=== PATIENT | female | born 1955 | race Caucasian/White ===

== ENCOUNTER 2019-08-03 13:46 | Emergency (ER) | payer MEDICARE ==
[~2019-08-03] VITALS: Ht 170.2 cm; Wt 71.9 kg
[2019-08-03 14:45] LABS: BASOPHILS % (AUTO) 0.2 % (0-1); EOSINOPHILS % (AUTO) 0.1 % (0-6); HEMATOCRIT 41.7 % (35.0-45.0); HEMOGLOBIN 14.2 g/dl (12.0-16.0); LYMPHOCYTES # (AUTO) 0.8 X10'3 (1.1-4.8); LYMPHOCYTES % (AUTO) 5.4 % (21-51); MEAN CORPUSCULAR HEMOGLOBIN 31.6 PG (27.0-31.0); MEAN CORPUSCULAR HGB CONC 34.1 g/dL (33.0-36.5); MEAN CORPUSCULAR VOLUME 92.7 FL (78-98); MEAN PLATELET VOLUME 6.4 FL (7.4-10.4); MONOCYTES # (AUTO) 0.6 X10'3 (0-0.9); MONOCYTES % (AUTO) 3.8 % (2-12); NEUTROPHILS # (AUTO) 13.8 X10'3 (1.8-7.7); NEUTROPHILS % (AUTO) 90.5 % (42-75); PLATELET COUNT 321 X10'3 (140-440); RED CELL DISTRIBUTION WIDTH 12.8 % (11.5-14.5); WHITE BLOOD COUNT 15.2 X10'3 (4.5-11.0)
[2019-08-03 15:20] LABS: ALANINE AMINOTRANSFERASE 181 U/L (12-78); ALBUMIN 4.1 G/DL (3.4-5.0); ALBUMIN/GLOBULIN RATIO 0.9 (1.1-1.5); ALKALINE PHOSPHATASE 157 IU/L (46-116); ANION GAP 12 (8-16); ASPARTATE AMINO TRANSFERASE 102 U/L (10-37); BILIRUBIN,TOTAL 0.4 MG/DL (0.1-1.0); BLOOD UREA NITROGEN 13 MG/DL (7-18); BUN/CREATININE RATIO 17.3 (6.6-38.0); CALCIUM 9.5 MG/DL (8.5-10.1); CHLORIDE 97 MMOL/L (99-107); CREATININE 0.75 MG/DL (0.40-0.90); GLUCOSE 122 MG/DL (70-104); SODIUM 133 MMOL/L (135-145); TOTAL CARBON DIOXIDE 24.2 MMOL/L (24-32); TOTAL PROTEIN 8.6 G/DL (6.4-8.2); eGFR 77 ML/MIN
--- NOTE | 2019-08-03 16:47 | NUR ---
Patient had large BM, DEMETRIA Badillo made aware, patient to CT via wheelchair.
--- NOTE | 2019-08-03 16:50 | NUR ---
PT HAD LARGE WELL FORMED STOOL. PT STATES, I FEEL SO MUCH BETTER. TO CT VIA WHEELCHAIR IN STABLE CONDITION.
[2019-08-03 17:36] VITALS: BP 190/105
== END 2019-08-03 17:39 | disposition home or self-care (01) ==
LOC: ER 13:47
DX: K59.03 Drug induced constipation (principal); M54.5 Low back pain; R10.30 Lower abdominal pain, unspecified; Z98.890 Other specified postprocedural states
CPT/HCPCS: 36415; 71045; 74176; 80053; 84484; 85025; 93005; 99284

== ENCOUNTER 2022-11-23 13:36 | Observation (INO) | payer MEDICARE ==
[~2022-11-23] VITALS: Ht 170.2 cm; Wt 76.8 kg
[2022-11-23 13:57] LABS: BASOPHILS # (AUTO) 0.1 X10'3 (0-0.2); EOSINOPHILS # (AUTO) 0.2 X10'3 (0-0.9); EOSINOPHILS % (AUTO) 2.2 % (0-6); HEMATOCRIT 41.6 % (35.0-45.0); LYMPHOCYTES # (AUTO) 2.2 X10'3 (1.1-4.8); LYMPHOCYTES % (AUTO) 23.6 % (21-51); MEAN CORPUSCULAR HEMOGLOBIN 30.4 PG (27.0-31.0); MEAN CORPUSCULAR HGB CONC 33.7 g/dL (33.0-36.5); MEAN PLATELET VOLUME 6.5 FL (7.4-10.4); MONOCYTES # (AUTO) 0.5 X10'3 (0-0.9); MONOCYTES % (AUTO) 5.7 % (2-12); NEUTROPHILS # (AUTO) 6.4 X10'3 (1.8-7.7); NEUTROPHILS % (AUTO) 67.5 % (42-75); PLATELET COUNT 304 X10'3 (140-440); RED BLOOD COUNT 4.61 X10'6 (4.20-5.60); RED CELL DISTRIBUTION WIDTH 13.3 % (11.5-14.5); WHITE BLOOD COUNT 9.4 X10'3 (4.5-11.0)
[2022-11-23 14:20] LABS: ALANINE AMINOTRANSFERASE 38 U/L (12-78); ALBUMIN 4.1 G/DL (3.4-5.0); ALBUMIN/GLOBULIN RATIO 1.1 (1.1-1.5); ALKALINE PHOSPHATASE 79 IU/L (46-116); ANION GAP 10 (8-16); ASPARTATE AMINO TRANSFERASE 29 U/L (10-37); BILIRUBIN,TOTAL 0.3 MG/DL (0.1-1.0); BLOOD UREA NITROGEN 12 MG/DL (7-18); BUN/CREATININE RATIO 14.5 (6.6-38.0); CALCIUM 9.6 MG/DL (8.5-10.1); CHLORIDE 103 MMOL/L (99-107); CREATININE 0.83 MG/DL (0.40-0.90); GLUCOSE 115 MG/DL (70-104); POTASSIUM 3.8 MMOL/L (3.5-5.1); SODIUM 137 MMOL/L (135-145); TOTAL CARBON DIOXIDE 23.7 MMOL/L (24-32); TOTAL PROTEIN 7.7 G/DL (6.4-8.2); eGFR 68 ML/MIN
[2022-11-23] MEDS ORDERED: DOXYCYCLINE 100MG CAPSULE PO STA (15:34)
[2022-11-23] MEDS ORDERED: DOXYCYCLINE 100MG CAPSULE PO ONE (15:44)
[2022-11-23] MEDS ORDERED: ondansetron 4mg rapidly disintigrating tab PO PRN (16:55)
[2022-11-23] MEDS ORDERED: potassium Cl 40MEQ/1/2NS 520ml 520 ML IV PRN (16:55)
[2022-11-23] MEDS ORDERED: HYDROcodone/acetaminophen 10/325mg tab PO PRN (16:55)
[2022-11-23] MEDS ORDERED: ondansetron/PF 4mg/2ml inj IV PRN (16:55)
[2022-11-23] MEDS ORDERED: potassium Cl 20 mEq SR tablet PO PRN ×2 (16:55)
[2022-11-23] MEDS ORDERED: regadenoson 0.4mg/5ml syringe IV PRN (16:55)
[2022-11-23] MEDS ORDERED: morphine 2 MG/ML inj. syringe IV PRN ×2 (16:55)
[2022-11-23] MEDS ORDERED: mag hydrox/Alum hydrox/simeth 30ml oral suspension PO PRN (16:55)
[2022-11-23] MEDS ORDERED: magnesium hydroxide 30ml (MOM) UD suspension PO PRN (16:55)
[2022-11-23] MEDS ORDERED: magnesium 4gm in 100ml NS 100 ML IV PRN (16:55)
[2022-11-23] MEDS ORDERED: nitroGLYCERIN 0.4mg SUBLingual tab SL PRN ×2 (16:55)
[2022-11-23] MEDS ORDERED: aminophylline 250mg/10ml inj. IV PRN (16:55)
[2022-11-23] MEDS ORDERED: metoprolol tartrate 1mg/ml inj IV PRN (16:55)
[2022-11-23] MEDS ORDERED: magnesium Cl slow-release 64mg tablet PO PRN (16:55)
[2022-11-23] MEDS ORDERED: PERFLUTREN PROTEIN-A MICROSPHR (Optison) 0.22 MG/ML 3ML VIAL IV ONE (16:55)
[2022-11-23] MEDS ORDERED: HYDROcodone/acetaminophen 5mg/325mg tablet PO PRN (16:55)
[2022-11-23] MEDS ORDERED: acetaminophen 325mg tablet PO PRN (16:55)
[2022-11-23] MEDS ORDERED: IBAN150T21 PO (17:29)
[2022-11-23] MEDS ORDERED: PRAV80TA3 PO (17:29)
[2022-11-23] MEDS ORDERED: OMEP20CA16 PO (17:29)
[2022-11-23] MEDS ORDERED: SERT-433 PO (17:29)
[2022-11-23] MEDS ORDERED: CHOL400T57 PO (17:29)
[2022-11-23] MEDS ORDERED: pantoprazole 40mg Tablet.DR PO PRN (17:55)
[2022-11-23 17:57] LABS: MAGNESIUM 2.1 MG/DL (1.5-2.4)
[2022-11-23 18:08] LABS: H PYLORI ANTIBODY POSITIVE (Neg)
--- NOTE | 2022-11-23 18:38 | NUR ---
Pt endorsed to Juhi SANTOS.
[2022-11-23] MEDS: K and/or MAG REPLACEMENT MC SCH (20:00)
[2022-11-23] MEDS ORDERED: temazepam 15mg capsule PO PRN (21:00)
[2022-11-23] MEDS: pravastatin 40mg tablet PO SCH (23:01)
[2022-11-24 05:59] LABS: BASOPHILS # (AUTO) 0.1 X10'3 (0-0.2); EOSINOPHILS # (AUTO) 0.2 X10'3 (0-0.9); HEMATOCRIT 38.9 % (35.0-45.0); HEMOGLOBIN 13.2 g/dl (12.0-16.0); LYMPHOCYTES % (AUTO) 29.5 % (21-51); MEAN CORPUSCULAR HEMOGLOBIN 30.4 PG (27.0-31.0); MEAN CORPUSCULAR HGB CONC 33.8 g/dL (33.0-36.5); MEAN CORPUSCULAR VOLUME 89.7 FL (78-98); MEAN PLATELET VOLUME 6.9 FL (7.4-10.4); MONOCYTES # (AUTO) 0.6 X10'3 (0-0.9); MONOCYTES % (AUTO) 8.4 % (2-12); NEUTROPHILS # (AUTO) 3.9 X10'3 (1.8-7.7); NEUTROPHILS % (AUTO) 58.1 % (42-75); PLATELET COUNT 245 X10'3 (140-440); RED BLOOD COUNT 4.33 X10'6 (4.20-5.60); RED CELL DISTRIBUTION WIDTH 13.4 % (11.5-14.5); WHITE BLOOD COUNT 6.8 X10'3 (4.5-11.0)
[2022-11-24 06:00] VITALS: BP 145/85
[2022-11-24 06:27] LABS: ALBUMIN 3.6 G/DL (3.4-5.0); ANION GAP 7 (8-16); BLOOD UREA NITROGEN 13 MG/DL (7-18); BUN/CREATININE RATIO 15.7 (6.6-38.0); CALCIUM 9.2 MG/DL (8.5-10.1); CHLORIDE 105 MMOL/L (99-107); CREATININE 0.83 MG/DL (0.40-0.90); GLUCOSE 95 MG/DL (70-104); MAGNESIUM 2.2 MG/DL (1.5-2.4); POTASSIUM 3.9 MMOL/L (3.5-5.1); SODIUM 138 MMOL/L (135-145); TOTAL CARBON DIOXIDE 26.3 MMOL/L (24-32); eGFR 68 ML/MIN
[2022-11-24] MEDS: K and/or MAG REPLACEMENT MC SCH ×2 (08:00→20:00)
[2022-11-24] MEDS: aspirin 81mg tab.chew PO SCH (08:11)
[2022-11-24] MEDS: sertraline 50mg tablet PO SCH (08:11)
[2022-11-24] MEDS: DOXYCYCLINE 100MG CAPSULE PO SCH ×2 (08:11→18:04)
[2022-11-24] MEDS ORDERED: LORazepam 0.5 MG tablet PO PRN (10:35)
[2022-11-24] MEDS: acetaminophen 325mg tablet PO PRN ×2 (11:48→18:04)
[2022-11-24] MEDS: loratadine 10mg tablet PO SCH (11:48)
[2022-11-24 12:00] VITALS: BP_SYST 100; BP_SYST 138; BP_DIAS 58; BP_DIAS 82
[2022-11-24 16:00] VITALS: BP 134/77
--- NOTE | 2022-11-24 17:25 | NUR ---
Student documentation: I have reviewed and agree with all interventions, assessments performed and documented by AURELIA.
[2022-11-24 18:00] VITALS: BP 143/75
--- NOTE | 2022-11-24 18:20 | NUR ---
Problems reprioritized. Patient report given, questions answered & plan of care reviewed with LOCO SANTOS.
--- NOTE | 2022-11-24 18:39 | NUR ---
Patient in bed with the head of the bed in a semi-fowlers position. Patient in on the phone. Patient has no signs or symptoms of distress. Patient is connected to tele-box 11. Call light within reach and all personal belongings within reach of this patient
[2022-11-24] MEDS: pravastatin 40mg tablet PO SCH (19:16)
[2022-11-25] VITALS (11 sets, daily range): BP systolic 124–151; BP diastolic 66–86
--- NOTE | 2022-11-25 05:50 | NUR ---
Patient in bed with the head of the bed in semi-fowlers position. Patient resting with her eyes closed. patient states she remains NPO. Call light within reach and all personal belongings within reach.
[2022-11-25 06:21] LABS: ALBUMIN 3.8 G/DL (3.4-5.0); ANION GAP 7 (8-16); BASOPHILS # (AUTO) 0.1 X10'3 (0-0.2); BASOPHILS % (AUTO) 0.7 % (0-1); BLOOD UREA NITROGEN 12 MG/DL (7-18); BUN/CREATININE RATIO 16.2 (6.6-38.0); CALCIUM 9.4 MG/DL (8.5-10.1); CHLORIDE 103 MMOL/L (99-107); CREATININE 0.74 MG/DL (0.40-0.90); EOSINOPHILS # (AUTO) 0.2 X10'3 (0-0.9); EOSINOPHILS % (AUTO) 2.4 % (0-6); GLUCOSE 93 MG/DL (70-104); HEMOGLOBIN 13.6 g/dl (12.0-16.0); LYMPHOCYTES % (AUTO) 26.1 % (21-51); MAGNESIUM 2.2 MG/DL (1.5-2.4); MEAN CORPUSCULAR HEMOGLOBIN 30.5 PG (27.0-31.0); MEAN CORPUSCULAR HGB CONC 33.9 g/dL (33.0-36.5); MEAN PLATELET VOLUME 6.8 FL (7.4-10.4); MONOCYTES # (AUTO) 0.6 X10'3 (0-0.9); MONOCYTES % (AUTO) 7.5 % (2-12); NEUTROPHILS # (AUTO) 4.8 X10'3 (1.8-7.7); NEUTROPHILS % (AUTO) 63.3 % (42-75); PLATELET COUNT 264 X10'3 (140-440); POTASSIUM 3.8 MMOL/L (3.5-5.1); RED BLOOD COUNT 4.45 X10'6 (4.20-5.60); RED CELL DISTRIBUTION WIDTH 13.1 % (11.5-14.5); SODIUM 137 MMOL/L (135-145); TOTAL CARBON DIOXIDE 26.7 MMOL/L (24-32); WHITE BLOOD COUNT 7.6 X10'3 (4.5-11.0); eGFR 78 ML/MIN
--- NOTE | 2022-11-25 06:31 | NUR ---
Patient in room PCU 3025. I have received report from LOCO SANTOS and had the opportunity to ask questions and assume patient care.
[2022-11-25] MEDS: K and/or MAG REPLACEMENT MC SCH (08:00)
[2022-11-25] MEDS ORDERED: regadenoson 0.4mg/5ml syringe IV PRN (08:20)
[2022-11-25] MEDS ORDERED: nitroGLYCERIN 0.4mg SUBLingual tab SL PRN (08:20)
[2022-11-25] MEDS ORDERED: PERFLUTREN PROTEIN-A MICROSPHR (Optison) 0.22 MG/ML 3ML VIAL IV ONE (08:20)
--- NOTE | 2022-11-25 08:30 | NUR ---
PT WANTS TO TAKE MEDS AFTER JAYSON SCAN SO SHES NOT NAUSEOUS
[2022-11-25] MEDS: aspirin 81mg tab.chew PO SCH (10:12)
[2022-11-25] MEDS: loratadine 10mg tablet PO SCH (10:12)
[2022-11-25] MEDS: sertraline 50mg tablet PO SCH (10:12)
[2022-11-25] MEDS: DOXYCYCLINE 100MG CAPSULE PO SCH (10:12)
--- NOTE | 2022-11-25 11:51 | NUR ---
Page Accepted Message: [id number], PT JAYSON SCAN RESULTED. PT IS WONDERING WHEN SHE WILL BE DC. RICK QUINTANA
[2022-11-25] MEDS ORDERED: PANT40TA54 PO (14:36)
[2022-11-25] MEDS ORDERED: METO-395 PO (14:36)
--- NOTE | 2022-11-25 15:22 | NUR ---
PT IS STABLE FOR DC, IV IS DC AND CANNULA IS INTACT, PT TOOK ALL BELONGINGS WITH THEM, PT DID NOT HAVE MEDS IN PHARMACY, PT WAS WALKED DOWN TO THE LOBBY AND LEFT IN A PRIVATE VEHICLE.
== END 2022-11-25 15:15 | disposition home or self-care (01) ==
LOC: ER 13:37 → ED HOLD 17:01 → PCU 3S 19:49
PROVIDERS: ADMIT Family Medicine; ATTEND Family Medicine
DX: I20.9 Angina pectoris, unspecified (principal); J18.9 Pneumonia, unspecified organism; J30.9 Allergic rhinitis, unspecified; E78.5 Hyperlipidemia, unspecified; K21.9 Gastro-esophageal reflux disease without esophagitis; M81.0 Age-related osteoporosis without current pathological fracture; I10 Essential (primary) hypertension; Z87.891 Personal history of nicotine dependence; Z79.899 Other long term (current) drug therapy
CPT/HCPCS: 36415; 71045; 78452; 80048; 80053; 83605; 83735; 83880; 84145; 84484; 85025; 86677; 87081; 93005; 93017; 93306; 96374; 99285; A9500; G0378; J2405; J2785